=== PATIENT | female | born 1990 | race Caucasian/White ===

== ENCOUNTER 2017-01-02 15:53 | Emergency (ER) | payer OTHER ==
[~2017-01-02] VITALS: Ht 157.5 cm; Wt 89.5 kg
[~2017-01-02 15:53] MED LIST: CIPR500T4 PO; FERR220S15 PO; FOLI1POW MC; PHEN-537 PO; PREN-39 PO; PRENAT PO
[2017-01-02 15:55] VITALS: Ht 157.5 cm; Wt 89.5 kg
[2017-01-02] MEDS ORDERED: KETOROLAC 60 MG INJ IM STA (16:14)
--- NOTE | 2017-01-02 17:07 | RADRPT ---
PROCEDURE: XR Ankle. CLINICAL INDICATION: Injury TECHNIQUE: 3 views of the right ankle were performed. COMPARISON: None. FINDINGS: There is no acute fracture or dislocation. The ankle mortise is intact. There is no significant chu int effusion. There is a small plantar calcaneal heel spur. Small enthesophytes are also present wi thin the posterior calcaneus at the Achilles tendon insertion. RPTAT: ZZ IMPRESSION: No acute bony abnormality. .Marina Chaparro MD, MD Date Time Electronically viewed and signed by .Marina Chaparro MD, MD on 01/02/2017 17:07 .T/
--- NOTE | 2017-01-02 17:08 | RADRPT ---
PROCEDURE: XR right foot. CLINICAL INDICATION: Injury TECHNIQUE: Three views of the right foot were obtained. COMPARISON: No prior studies are available for comparison. FINDINGS: There is no acute fracture or dislocation. The metatarsals are in alignment with the cuneiforms. Th ere is mild joint space narrowing with osseous spurring within the first metatarsophalangeal joint. Remaining joint spaces are maintained. The soft tissues are unremarkable. RPTAT: ZZ IMPRESSION: No acute bony abnormality. .Marina Chaparro MD, MD Date Time Electronically viewed and signed by .Marina Chaparro MD, MD on 01/02/2017 17:08 .T/
[2017-01-02] MEDS ORDERED: IBUP-1542 PO (17:59)
--- NOTE | 2017-01-02 18:14 | ERD ---
ER Documentation Chief Complaint Date/Time DATE: 01/02/17 TIME: 18:05 Chief Complaint right ankle pain s/p fall 2 days ago HPI 26-year-old female patient with no significant past medical history presents to the ED complaining of a right ankle and foot injury that occurred 2 days ago. States hat she was walking with a bucket of water and accidentally twisted her right ankle and foot. The pain as and rates it a 5 out of 10. Denies any loss of sensation, loss of range of motion, fever, chills, weakness, numbness or tingling. Denies any head or neck injuries. Denies any loss of consciousness. ROS All systems reviewed and are negative except as per history of present illness. Medications Home Meds Active Scripts Ibuprofen* (Motrin*) 600 Mg Tab, 600 MG PO Q6, #30 TAB Prov:JERROD MARMOLEJO PA-C 01/02/17 Phenazopyridine Hcl* (Pyridium*) 100 Mg Tab, 100 MG PO TID, #6 TAB Prov:JONATHAN IQBAL DO 04/12/16 Ciprofloxacin Hcl* (Ciprofloxacin Hcl*) 500 Mg Tablet, 500 MG PO BID, #28 TAB Prov:JONATHAN IQBAL DO 04/12/16 Reported Medications Vits W-Ca,Fe,Fa(<1MG) ( Vitamins) 1 Tab Tablet, 1 TAB PO, TAB 05/29/15 Folic Acid (Folic Acid) 1 Gm Powder, 1 GM MC AM 02/12/15 Ferrous Sulfate (Ferrous Sulfate) 220 Mg/5 Ml Solution, 220 MG PO AM, ML 02/12/15 Multivit/Min/Fol Ac/Iron/Pren* ( S*) 1 Tab Tab, 1 TAB PO AM, TAB 02/12/15 Allergies Allergies: Coded Allergies: No Known Allergies (Verified Allergy, Mild, 02/04/13) No Known Drug Allergies (Verified Allergy, Unknown, 05/29/15) PMhx/Soc History of Surgery: No Anesthesia Reaction: No Hx Neurological Disorder: No Hx Respiratory Disorders: No Hx Cardiac Disorders: No Hx Psychiatric Problems: No Hx Miscellaneous Medical Probl: No Hx Alcohol Use: No Hx Substance Use: No Hx Tobacco Use: No Smoking Status: Never smoker Physical Exam Vitals Vital Signs Date Time Temp Pulse Resp B/P Pulse Ox O2 Delivery O2 Flow Rate FiO2 01/02/17 15:55 98.3 85 18 119/61 98 Physical Exam Const: Ner-yjn-lvnehkmsk, well-nourished. In no acute distress. Head: Atraumatic, normocephalic Eyes: Normal Conjunctiva without injection ENT: Normal external ear, nose and mouth. Neck: Full range of motion. No meningismus. Resp: Clear to auscultation bilaterally. No wheezing, rhonchi, rales, or crackles. No accessory muscle use. No retractions. Cardio: Regular rate and rhythm, no murmurs Skin: No petechiae or rashes Back: No midline tenderness. No CVA tenderness. Ext: No cyanosis, or edema. Cap refill less than 2 seconds. Distal pulses intact bilaterally. Redness to palpation of the right inferior portion of the medial malleolus. Slight tenderness to palpation of the distal fifth phalanx of the right foot. No erythema or edema. No deformities. Patient had full range of motion with flexion, extension. Slight tenderness with inversion and eversion. Patient able to bear weight of right foot/ankle. Neur: Awake and alert. Limping gait due to pain. Muscle strength 5/5. Sensation intact bilaterally. Psych: Normal Mood and Affect Results 24 hrs Current Medications Medications (Trade) Dose Ordered Sig/Yuliet Route PRN Reason Start Time Stop Time Status Last Admin Dose Admin Ketorolac Tromethamine (Toradol) 60 mg ONCE STAT IM 01/02/17 16:14 01/02/17 16:17 DC 01/02/17 16:29 Procedures/MDM 26-year-old female patient with no significant past medical history presents to the ED complaining of a right foot and ankle injury 2 days ago. Patient is afebrile and nontoxic-appearing. Patient has normal vital signs. A right ankle and foot x-ray was ordered to further evaluate patient. Urine negative. Toradol was ordered to further treat patient with improvement. PROCEDURE: XR Ankle. CLINICAL INDICATION: Injury TECHNIQUE: 3 views of the right ankle were performed. COMPARISON: None. FINDINGS: There is no acute fracture or dislocation. The ankle mortise is intact. There is no significant joint effusion. There is a small plantar calcaneal heel spur. Small enthesophytes are also present within the posterior calcaneus at the Achilles tendon insertion. RPTAT: ZZ IMPRESSION: No acute bony abnormality. PROCEDURE: XR Ankle. CLINICAL INDICATION: Injury TECHNIQUE: 3 views of the right ankle were performed. COMPARISON: None. FINDINGS: There is no acute fracture or dislocation. The ankle mortise is intact. There is no significant joint effusion. There is a small plantar calcaneal heel spur. Small enthesophytes are also present within the posterior calcaneus at the Achilles tendon insertion. RPTAT: ZZ IMPRESSION: No acute bony abnormality. Patient is placed in an j carlos wrap. Crutches were given to patient to help with ambulation. Splint Assessment: Neurovascularly intact pre and post splint placement with good fit. Patient has a right heel spur. Patient likely sustained a ankle/foot sprain. Patient's extremity symptoms have stabilized while they have been evaluated in the department and are appropriate for outpatient follow up. No evidence of fractures, dislocations, compartment syndrome, neurologic injury, vascular injury, open joint, open fracture, tendon laceration, septic arthritis, osteomyelitis, DVT, foreign body, or other emergent conditions. Discharge medications: Ibuprofen Follow up with primary care physician in 1-2 days referral to an orthopedic physician if symptoms do not improve. Instructed patient to return to the ED sooner for any worsening symptoms. Patient's questions were answered. Patient understood and agreed with discharge plan. Patient discharged stable. Departure Diagnosis: Primary Impression: Foot injury Encounter type: initial encounter Laterality: right Qualified Code: S99.921A - Injury of right foot, initial encounter Additional Impression: Ankle injury Encounter type: initial encounter Laterality: right Qualified Code: S99.911A - Injury of right ankle, initial encounter Condition: Stable Patient Instructions: What Are Ankle Sprains?, Sprain Foot, Heel Spur Referrals: [facility] YOU HAVE RECEIVED A MEDICAL SCREENING EXAM AND THE RESULTS INDICATE THAT YOU DO NOT HAVE A CONDITION THAT REQUIRES URGENT TREATMENT IN THE EMERGENCY DEPARTMENT. FURTHER EVALUATION AND TREATMENT OF YOUR CONDITION CAN WAIT UNTIL YOU ARE SEEN IN YOUR DOCTORS OFFICE WITHIN THE NEXT 1-2 DAYS. IT IS YOUR RESPONSIBILITY TO MAKE AN APPOINTMENT FOR FOLOW-UP CARE. IF YOU HAVE A PRIMARY DOCTOR --you should call your primary doctor and schedule an appointment IF YOU DO NOT HAVE A PRIMARY DOCTOR YOU CAN CALL OUR PHYSICIAN REFERRAL HOTLINE AT IF YOU CAN NOT AFFORD TO SEE A PHYSICIAN YOU CAN CHOSE FROM THE FOLLOWING [facility] [address] [facility] [address] [facility]. [facility] [address] [facility] [address] [facility] [address] [facility]. [facility] [address] [facility]. [facility] YOU HAVE RECEIVED A MEDICAL SCREENING EXAM AND THE RESULTS INDICATE THAT YOU DO NOT HAVE A CONDITION THAT REQUIRES URGENT TREATMENT IN THE EMERGENCY DEPARTMENT. FURTHER EVALUATION AND TREATMENT OF YOUR CONDITION CAN WAIT UNTIL YOU ARE SEEN IN YOUR DOCTORS OFFICE WITHIN THE NEXT 1-2 DAYS. IT IS YOUR RESPONSIBILITY TO MAKE AN APPOINTMENT FOR FOLOW-UP CARE. IF YOU HAVE A PRIMARY DOCTOR --you should call your primary doctor and schedule and appointment IF YOU DO NOT HAVE A PRIMARY DOCTOR YOU CAN CALL OUR PHYSICIAN REFERRAL HOTLINE AT . IF YOU CAN NOT AFFORD TO SEE A PHYSICIAN YOU CAN CHOSE FROM THE FOLLOWING [facility] INSTITUTIONS: [facility] [address] [place] [address] [facility] [address] [place] [address] [facility] [address] [place] [address] [facility] URGENT CARE/SPECIALTIES Additional Instructions: Call your primary care doctor TOMORROW for an appointment during the next 2-3 days.See the doctor sooner or return here if your condition worsens before your appointment time. JERROD MARMOLEJO PA-C Jan 02, 2017 18:14
== END 2017-01-02 18:08 | disposition home or self-care (01) ==
LOC: FTE 15:53
DX: S99.921A Unspecified injury of right foot, initial encounter (principal); S99.911A Unspecified injury of right ankle, initial encounter; X50.9XXA Other and unspecified overexertion or strenuous movements or postures, initial encounter; Y92.9 Unspecified place or not applicable
CPT/HCPCS: 73610; 73630; 96372; J1885; Z7502

== ENCOUNTER 2017-05-05 12:33 | Emergency (ER) | END 2017-05-05 12:57 | disposition left against medical advice (07) ==